=== PATIENT | female | born 1985 | race Caucasian/White ===

== ENCOUNTER 2021-11-13 21:46 | Emergency (ER) | payer SELFPAY ==
[2021-11-13] MEDS ORDERED: Bupivacaine 0.25% 10 ML VIAL ONE (22:11)
== END 2021-11-13 22:43 | disposition home or self-care (01) ==
LOC: ERS 21:46
DX: K08.89 Other specified disorders of teeth and supporting structures (principal)
CPT/HCPCS: 64400; S0020

== ENCOUNTER 2021-11-15 17:41 | Emergency (ER) | payer SELFPAY | END 2021-11-15 19:37 | disposition home or self-care (01) | LOC: ERS 17:41 | DX: U07.1 COVID-19 (principal); F17.210 Nicotine dependence, cigarettes, uncomplicated | CPT/HCPCS: 99284; U0003; U0005 ==